=== PATIENT | male | born 1995 | race Caucasian/White ===

== ENCOUNTER 2017-06-30 21:12 | Emergency (ER) | payer SELFPAY ==
[~2017-06-30] VITALS: Ht 177.8 cm; Wt 68.0 kg
[~2017-06-30 21:12] MED LIST: AMOX50SU PO; ANTOXYBENA OT; CODACEE120 PO; CODGUAEL PO; PENVK250SU PO; PERM5TC TOP; PRED10 PO; RXCODGUASY PO; SULTRIDS PO
== END 2017-06-30 23:44 | disposition home or self-care (01) ==
LOC: ER 21:12
DX: S82.52XA Displaced fracture of medial malleolus of left tibia, initial encounter for closed fracture (principal); F17.200 Nicotine dependence, unspecified, uncomplicated; V86.56XA Driver of dirt bike or motor/cross bike injured in nontraffic accident, initial encounter
CPT/HCPCS: 29515; 73610; 73630; 99283

== ENCOUNTER → 2021-03-05 | Outpatient (CLI) | payer OTHER | END | disposition home or self-care (01) | LOC: LAB SHORT 17:20 → LAB 17:20 | DX: R07.9 Chest pain, unspecified (principal) | CPT/HCPCS: 85379 ==

== ENCOUNTER 2025-02-17 06:14 | Day surgery (SDC) | payer OTHER, BC ==
[~2025-02-17] VITALS: Ht 177.8 cm; Wt 72.4 kg
[2025-02-17] MEDS ORDERED: CeFAZolin Sodium 2,000 MG VIAL ONE (07:01)
[2025-02-17] MEDS ORDERED: Lidocaine 2%-Epineph 1:100000 20 ML MDV ONE (07:06)
[2025-02-17] MEDS ORDERED: Midazolam HCL 1 MG/ML 5MLVIAL ONE (07:13)
[2025-02-17] MEDS ORDERED: FentaNYL Citrate 50 MCG/ML 2 ML Injection ONE (07:13)
[2025-02-17] MEDS ORDERED: Sugammadex Sodium 200 MG/2ML SDV (100 MG/ML) ONE (07:13)
[2025-02-17] MEDS ORDERED: HYDROmorphone HCl/Pf 1MG SYR ONE ×2 (07:13→08:53)
[2025-02-17] MEDS ORDERED: Midazolam HCl 1MG / ML 2ML Vial ONE (07:14)
--- NOTE | 2025-02-17 07:31 | NUR ---
02/17/25 0731 Gladis Gray APPROXIMATELY 5 MINUTES AFTER IV START PT STATED THAT HE "DID NOT FEEL GOOD" AND "DOES NOT DO WELL WITH NEEDLES." PT BECAME DIAPHORETIC, SHIVERING, AND NAUSEOUS. RN PROVIDED COOL CLOTH AND EMESIS BAG. VITAL SIGNS OBTAINED AND WNL. PT WAS REASSESSED AFTER 15 MINUTES AND HE WAS DOING MUCH BETTER.
[2025-02-17] MEDS ORDERED: Dexamethasone Sod Phos 10 MG/ML 1ML VIAL ONE (07:40)
[2025-02-17] MEDS ORDERED: Ondansetron HCl 2 MG / ML 2ML Vial ONE (07:40)
[2025-02-17] MEDS ORDERED: Ketorolac Tromethamine 30mg Vial ONE (07:40)
--- NOTE | 2025-02-17 09:04 | NUR ---
02/17/25 0904 Jarek Burks DILAUDID 0.5MG IV GIVEN AT 0900 FOR 12/27 RIGHT KNEE PAIN
[2025-02-17 09:09] VITALS: BP 103/82
== END 2025-02-17 09:58 | disposition home or self-care (01) ==
LOC: ORSCSDS 06:14
PROVIDERS: Orthopaedic Surgery
PROC: 0SQC4ZZ Repair Right Knee Joint, Percutaneous Endoscopic Approach (ICD-10-PCS; principal; 2025-02-17 07:30)
DX: M89.9 Disorder of bone, unspecified (principal); M67.51 Plica syndrome, right knee; M67.461 Ganglion, right knee
CPT/HCPCS: A9270; J0166; J0690; J1100; J1171; J1885; J2250; J2405; J2704; J3010; J7120